=== PATIENT | male | born 1980 | race Caucasian/White ===

== ENCOUNTER 2018-01-23 04:41 | Emergency (ER) | payer BC ==
[~2018-01-23] VITALS: Ht 175.3 cm; Wt 104.5 kg
[2018-01-23 04:45] VITALS: BP 137/91; TEMP 98.1
[2018-01-23] MEDS ORDERED: DOXYCYCLINE HY100 MG PO (04:52)
[2018-01-23] MEDS ORDERED: NORCO 325 MG-101 TAB PO (04:52)
[2018-01-23 05:37] VITALS: PULSE 80
== END 2018-01-23 05:37 | disposition home or self-care (01) ==
LOC: COL.ER 04:41
DX: G89.29 Other chronic pain (principal); M79.674 Pain in right toe(s); F17.210 Nicotine dependence, cigarettes, uncomplicated; Z90.89 Acquired absence of other organs; Z98.890 Other specified postprocedural states